=== PATIENT | male | born 1960 | race Caucasian/White ===

== ENCOUNTER 2017-03-03 22:10 | Emergency (ER) | payer OTHER ==
[~2017-03-03] VITALS: Ht 167.6 cm; Wt 77.1 kg
--- NOTE | 2017-03-03 22:16 | NUR ---
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 Patient reports "feeling doomed" or "likely to pass out." Initiated comfort measures. O2 inh provided. Gowned. school bus monitor on. Monitored closely.
--- NOTE | 2017-03-03 22:18 | NUR ---
Dr Chavez at bedside for eval.
[2017-03-03] MEDS ORDERED: ASPIRIN 325 MG TABLET ONE (22:22)
[2017-03-03] MEDS ORDERED: NITROGLYCERIN 0.4 MG/TAB BOTTLE ONE (22:22)
[2017-03-03] MEDS: NITROGLYCERIN 0.4 MG/TAB BOTTLE SL ONE (22:26)
--- NOTE | 2017-03-03 22:27 | NUR ---
[facility] CALLED. [facility] NOTIFIED. FACESHEET AND EKG FAXED.
[2017-03-03] MEDS: ASPIRIN 325 MG TABLET PO ONE (22:33)
[2017-03-03 22:37] LABS: BASOPHILS # (AUTO) 0.1 /CMM (0.0-0.2); BASOPHILS % (AUTO) 0.7 % (0.0-2.0); EOSINOPHILS # (AUTO) 0.1 /CMM (0.0-0.7); EOSINOPHILS % (AUTO) 1.3 % (0.0-6.0); HEMATOCRIT 44 % (39-51); HEMOGLOBIN 14.6 g/dL (13.5-17.5); LYMPHOCYTES # (AUTO) 4.4 /CMM (0.8-4.8); LYMPHOCYTES % (AUTO) 42.3 % (20.0-44.0); MEAN CORPUSCULAR HEMOGLOBIN 29 PG (26.0-33.0); MEAN CORPUSCULAR HGB CONC 33 g/dl (31.0-36.0); MEAN CORPUSCULAR VOLUME 88 fL (80-96); MONOCYTES # (AUTO) 0.9 /CMM (0.1-1.30); MONOCYTES % (AUTO) 8.9 % (2.0-12.0); NEUTROPHILS # (AUTO) 4.8 /CMM (1.8-8.9); NEUTROPHILS % (AUTO) 46.8 % (43.0-81.0); PLATELET COUNT (AUTO) 313 /CMM (150-450); RDW COEFFICIENT OF VARIATION 12.6 (11.5-15.0); RED BLOOD CELL COUNT(AUTO) 4.98 MIL/uL (4.5-6.0); WHITE BLOOD COUNT (AUTO) 10.3 K/uL (4.3-11.0)
[2017-03-03] MEDS ORDERED: IV SET PRIMARY 1 EA INFUS.SET MC ONE (22:41)
[2017-03-03] MEDS ORDERED: IV NS 0.9% 1,000 ML ONE (22:41)
[2017-03-03] MEDS: IV NS 0.9% 1,000 ML BAG IV ONE (22:45)
--- NOTE | 2017-03-03 22:45 | NUR ---
Patient reported feeling "relieved from chest pain, 1/10" after nitro SL. will cont tp monitor.
[2017-03-03 22:47] LABS: INR 0.94 (0.87-1.13)
[2017-03-03 22:50] LABS: CARBON DIOXIDE 23 mmol/L (21-32); CHLORIDE 103 mmol/L (98-107); CREATININE 1.4 mg/dL (0.6-1.3); GFR 53 mL/min (>60); GLUCOSE 153 mg/dL (74-106); POTASSIUM 3.2 mmol/L (3.5-5.1); SODIUM SERUM 138 mmol/L (136-145); UREA NITROGEN, BLOOD 26 mg/dL (7-18)
[2017-03-03 22:55] LABS: TROPONIN I < 0.017 ng/mL (0.00-0.056)
[2017-03-03] MEDS ORDERED: POTASSIUM CHLORIDE 20 MEQ TAB.PRT.SR PO ONE (23:08)
[2017-03-03] MEDS: POTASSIUM CHLORIDE 20 MEQ TAB.PRT.SR PO ONE (23:12)
[2017-03-03 23:13] VITALS: BP 112/65
--- NOTE | 2017-03-03 23:22 | NUR ---
Report given to Georges VALERIO in [facility] ambulance transport for [facility]. VSS. No further complaints from patient. Belongings with patient.
== END 2017-03-03 23:25 | disposition short-term general hospital (02) ==
LOC: ER 22:15
DX: I21.3 ST elevation (STEMI) myocardial infarction of unspecified site (principal); N28.9 Disorder of kidney and ureter, unspecified; I10 Essential (primary) hypertension; Z79.82 Long term (current) use of aspirin
CPT/HCPCS: 36415; 71010-TC; 80048-TC; 84484-TC; 85025-TC; 85730-TC; A4606; J7030; Z7610